=== PATIENT | female | born 1970 | race Caucasian/White ===

== ENCOUNTER → 2023-09-11 10:10 | Outpatient (REF) | payer OTHER, SELFPAY ==
[2023-09-11 12:47] LABS: Rubella Positive
[2023-09-12 11:08] LABS: Mumps Virus IgG Equivocal; Rubeola (Measles) IgG Positive; Varicella Zoster IgG (VZV) Positive
[2023-09-13 12:06] LABS: Quantiferon Mitogen minus NIL 9.97 IU/mL; Quantiferon NIL 0.03 IU/mL; Quantiferon Plus TB2 minus NIL 0.01 IU/mL (<=0.34); Quantiferon TB Gold Plus Negative (Negative)
== END ==
LOC: REG 10:10
PROVIDERS: ATTENDING PHYSICIAN Nurse Practitioner Family; FAMILY PHYSICIAN Registered Nurse
DX: Z23 Encounter for immunization (principal)
CPT/HCPCS: 86480; 86735; 86762; 86765; 86787